=== PATIENT | female | born 1980 | race Hispanic/Latino ===

== ENCOUNTER → 2020-01-08 09:13 | Outpatient (CLI) | payer OTHER, SELFPAY ==
[2020-01-08 10:47] LABS: Add Manual Diff / Slide Review NO; Basophils Absolute Auto 0 /uL (0-100); Basophils Percent Auto 0.4 % (0-2); Eosinophils Absolute Auto 0 /uL (0-450); Eosinophils Percent Auto 0.7 % (2-4); Hematocrit 41.5 % (36-46); Hemoglobin 14.1 g/dL (12.0-16.0); Lymphocytes Absolute Auto 2000 /uL (1100-4500); Mean Corpuscular HGB Conc 34.1 % (30-36); Mean Corpuscular Hemoglobin 30.7 PG (26-34); Mean Corpuscular Volume 90.1 fL (80-100); Monocytes Absolute Auto 400 /uL (0-900); Monocytes Percent Auto 5.4 % (3-14); Neutrophils Absolute Auto 4200 /uL (1500-7000); Neutrophils Percent Auto 63.5 % (50-75); Platelet Count 195 X10^3/uL (150-400); Red Blood Cell Count 4.61 X10^6/uL (4.0-5.2); Red Cell Distribution Width 12.8 % (11.6-14.8); White Blood Cell Count 6.6 X10^3/uL (4.5-11.0)
[2020-01-08 11:23] LABS: Alanine Aminotransferase 12 IU/L (<35); Albumin 4.4 g/dL (3.5-5.0); Albumin Globulin Ratio 1.6 (1.0-2.8); Alkaline Phosphatase 79 U/L (38-126); Aspartate Aminotransferase 18 IU/L (14-36); BUN Creatinine Ratio 15.4 (6-22); Bilirubin Total 0.4 mg/dL (0.2-1.3); Blood Urea Nitrogen 10 mg/dL (7-17); Calcium 9.2 mg/dL (8.4-10.2); Carbon Dioxide 27 mmol/L (22-32); Chloride 105 mmol/L (98-107); Cholesterol 188 mg/dL (140-199); Estimated Glomerular Filt Rate > 60.0 mL/min (>60); Globulin 2.7 g/dL (1.7-4.1); Glucose 92 mg/dL (70-100); HDL Cholesterol 76 mg/dL (40-60); HEMOLYSIS < 15 (0-50); LDL Cholesterol Calculated 83 mg/dL (<100); Potassium 4.2 mmol/L (3.4-5.1); Sodium 139 mmol/L (137-145); Total Protein 7.1 g/dL (6.3-8.2); Triglycerides 147 mg/dL (35-150)
[2020-01-08 11:42] LABS: TSH w/ Reflex to FT4 1.24 uIU/mL (0.47-4.68)
== END ==
PROVIDERS: PCP Family Medicine; Referring Provider Family Medicine; Visit Provider Family Medicine
DX: Z13.220 Encounter for screening for lipoid disorders (principal); Z13.228 Encounter for screening for other metabolic disorders; Z13.29 Encounter for screening for other suspected endocrine disorder; Z76.89 Persons encountering health services in other specified circumstances
CPT/HCPCS: 36415; 80053; 80061; 84443; 85025

== ENCOUNTER → 2020-08-06 07:50 | Outpatient (CLI) | payer OTHER, SELFPAY ==
[2020-08-06] MEDS: COVID-19 VACC #1, MRNA(MOD) 100 MCG/0.5 ML VIAL IM (07:57)
== END ==
PROVIDERS: PCP Family Medicine; Visit Provider Internal Medicine
DX: Z23 Encounter for immunization (principal)
CPT/HCPCS: 0011A; 91301

== ENCOUNTER → 2020-09-03 07:35 | Outpatient (CLI) | payer OTHER, SELFPAY ==
[2020-09-03] MEDS: COVID-19 VACC #2, MRNA(MOD) 100 MCG/0.5 ML VIAL IM (07:50)
== END ==
PROVIDERS: PCP Family Medicine; Visit Provider Internal Medicine
DX: Z23 Encounter for immunization (principal)
CPT/HCPCS: 0012A; 91301

== ENCOUNTER → 2021-06-01 11:59 | Outpatient (CLI) | payer OTHER, SELFPAY ==
--- NOTE | 2021-06-01 12:02 | DI.US.S_ITS ---
PROCEDURE: US OB <= 14 WEEKS FETUS INDICATIONS: INITIAL VIABILITY AND DATING OUTSIDE/PRIOR DATING DATA: Last menstrual period (LMP): 04/02/2021 LMP-based estimated date of delivery (AKUA): 01/07/2022 First dating scan (date and location): 06/01/2021 and [facility] Estimated date of delivery (AKUA) from first dating scan: 01/05/2022 TECHNIQUE: Real-time scanning was performed of the fetus and maternal pelvic organs, with image documentation. Endovaginal scanning was also performed to better visualize the fetus and maternal ovaries. COMPARISON: None. FINDINGS: Embryo: Intrauterine gestational sac is seen with yolk sac and pole. Revloc-rump length is 2.2 cm, compatible with an estimated gestational age of 8 weeks 6 days. Heart rate: 175 beats per minute Maternal organs: A dominant right ovarian follicle is seen measuring up to 2.5 cm, most likely a corpus luteum cyst. IMPRESSION: Single live intrauterine with estimated gestational age of 8 weeks 6 days, giving an ultrasound AKUA of 01/05/2022. We strive to produce accurate, complete, and clear reports of imaging services. To assist us in improving patient care, this report was composed using standard report templates and voice recognition software. Therefore, it may contain abnormal punctuation, insertions and/or omissions. Occasional wrong-word or sound-alike substitutions may occur. Though we review the report and make efforts to correct it, we do recommend that the report be read carefully in proper context to recognize any text inaccuracies. Dictated by: Bebo Dwyer M.D. on 06/01/2021 at 16:25 Approved by: Bebo Dwyer M.D. on 06/01/2021 at 16:27
[2021-06-01 14:16] LABS: Appearance Urine UA CLEAR; Bilirubin Urine UA NEGATIVE (NEGATIVE); Color Urine UA YELLOW; Glucose Urine UA NEGATIVE (Negative); Ketones Urine UA TRACE (NEGATIVE); Leukocyte Esterase Urine UA NEGATIVE (NEGATIVE); Nitrite Urine UA POSITIVE (Negative); Occult Blood Urine UA 1+ (Negative); Protein Urine UA NEGATIVE (Negative); Specific Gravity Urine UA 1.025 (1.000-1.035); Urobilinogen Urine UA 0.2 E.U./dL (0.2)
[2021-06-01 14:19] LABS: pH Urine UA 5.5 (4.5-8.0)
[2021-06-01 14:23] LABS: Add Manual Diff / Slide Review NO; Basophils Absolute Auto 0 /uL (0-100); Basophils Percent Auto 0.4 % (0-2); Eosinophils Absolute Auto 100 /uL (0-450); Eosinophils Percent Auto 1.1 % (2-4); Hematocrit 37.7 % (36-46); Hemoglobin 13.3 g/dL (12.0-16.0); Lymphocytes Absolute Auto 1900 /uL (1100-4500); Lymphocytes Percent Auto 23.4 % (25-40); Mean Corpuscular HGB Conc 35.4 % (30-36); Mean Corpuscular Volume 87.6 fL (80-100); Monocytes Absolute Auto 600 /uL (0-900); Monocytes Percent Auto 7.4 % (3-14); Neutrophils Absolute Auto 5400 /uL (1500-7000); Neutrophils Percent Auto 67.7 % (50-75); Platelet Count 236 X10^3/uL (150-400); Red Cell Distribution Width 12.3 % (11.6-14.8)
[2021-06-01 14:25] LABS: Bacteria Urine Moderate (10-30); Culture Indicated Urine Specimen Cultured; RBC Urine 1-5/HPF (0-5/HPF); Squamous Epithelial Cell Urine 0-1 /HPF (0-5/HPF); WBC Urine None Seen (0-5/HPF)
[2021-06-02 07:10] LABS: RPR Screen Non Reactive (Non Reactive)
[2021-06-02 11:55] LABS: Varicella IgG Antibody 615 index (Immune >165)
[2021-06-03 09:06] LABS: Hepatitis B Surface Antigen NEGATIVE s/c (NEGATIVE)
[2021-06-03 09:27] LABS: HIV 1 & 2 Ab/Ag 4th Gen Combo NEGATIVE (NEGATIVE); Hep C Virus Ab w/Reflex Quant NEGATIVE s/c (NEGATIVE)
== END ==
PROVIDERS: PCP Family Medicine; Referring Provider Obstetrics & Gynecology; Visit Provider Obstetrics & Gynecology
DX: Z36.87 Encounter for antenatal screening for uncertain dates (principal); Z3A.08 8 weeks gestation of pregnancy
CPT/HCPCS: 36415; 76801; 76817; 80055; 81003; 81015; 86787; 86803; 86850; 86900; 86901; 87086; 87389

== ENCOUNTER → 2021-06-09 16:50 | Outpatient (CLI) | payer OTHER, SELFPAY ==
[2021-06-09 20:14] LABS: Urine N gonorrhoeae NOT DETECTED
[2021-06-09 20:16] LABS: Urine Chlamydia NOT DETECTED
== END ==
PROVIDERS: PCP Family Medicine; Visit Provider Obstetrics & Gynecology
DX: Z34.81 Encounter for supervision of other normal pregnancy, first trimester (principal); Z3A.09 9 weeks gestation of pregnancy
CPT/HCPCS: 87491; 87591

== ENCOUNTER → 2021-07-28 11:22 | Outpatient (CLI) | payer OTHER, SELFPAY ==
[2021-07-30 20:16] LABS: AFP Value 36.3 ng/mL (.); Gest Age on Col Date 16.7 weeks (.); Gestational Age Ultrasound (.); Insulin Dep Diabetes No (.); OSBR Risk 1IN 10000 (.); Results Report (.); Test Results *Screen Negative* (.)
== END ==
PROVIDERS: PCP Family Medicine; Referring Provider Obstetrics & Gynecology; Visit Provider Obstetrics & Gynecology
DX: Z34.82 Encounter for supervision of other normal pregnancy, second trimester (principal); Z3A.16 16 weeks gestation of pregnancy
CPT/HCPCS: 36415; 82105

== ENCOUNTER → 2021-08-25 13:03 | Outpatient (CLI) | payer OTHER, SELFPAY ==
--- NOTE | 2021-08-25 13:04 | DI.US.S_ITS ---
PROCEDURE: US OB >= 14 WEEKS FETUS INDICATIONS: 20 WEEK ANATOMY SCAN OUTSIDE/PRIOR DATING DATA: Last menstrual period (LMP): April 02, 2021. LMP-based estimated date of delivery (AKUA): January 07, 2022. First dating scan (date and location): June 01, 2021. Estimated date of delivery (AKUA) from first dating scan: January 05, 2022. TECHNIQUE: Real-time scanning was performed of the fetus, with image documentation and biometric measurements. COMPARISON: [facility], OB <= 14 WEEKS FETUS, 06/01/2021, 12:13. FINDINGS: General: A single living intrauterine gestation is present. Presentation: Vertex. Placenta: Placental position is anterior , without previa. Amniotic fluid index: 12.1 cm, normal range is 5-24 cm. Single deepest vertical pocket is 3.9 cm. heart rate: 160 beats per minute. Maternal cervical canal: 3.9 cm long. Normal lower limit is 2.5 cm. biometrics: Biparietal diameter: 4.9 cm Head circumference: 18.4 cm Abdominal circumference: 16.6 cm Femur length: 3.7 cm Clinically estimated gestational age: 21 weeks Composite gestational age from present scan: 21 weeks, 2 days Estimated weight and percentile: 432 g +/-64 g; 74th percentile Anatomic survey: Neuro: Ventricles are non-dilated at less than 10 mm. Cisterna magna is normal at 3-11 mm. Cerebellum is normal in size and morphology. Nuchal skin fold: Normal at less than 6 mm between 14-21 weeks gestational age. Face: Nose and lips, facial profile are normal. Spine: No evidence for spina bifida. Heart: 4-chambered heart is present, with normal ventricular outflow tracts. Diaphragm: Diaphragm is intact. Stomach: Left-sided stomach is present. Kidneys: No hydronephrosis. Normal is less than 5 mm in 2nd trimester, less than 7 mm in 3rd trimester. Cord: 3-vessel cord has orthotopic insertion. Bladder: Normal in size. Extremities: All 4 extremities identified. IMPRESSION: Single intrauterine gestation as detailed above. We strive to produce accurate, complete, and clear reports of imaging services. To assist us in improving patient care, this report was composed using standard report templates and voice recognition software. Therefore, it may contain abnormal punctuation, insertions and/or omissions. Occasional wrong-word or sound-alike substitutions may occur. Though we review the report and make efforts to correct it, we do recommend that the report be read carefully in proper context to recognize any text inaccuracies. Dictated by: Abner Mckinney M.D. on 08/25/2021 at 14:29 Approved by: Abner Mckinney M.D. on 08/25/2021 at 14:36
== END ==
PROVIDERS: PCP Family Medicine; Referring Provider Obstetrics & Gynecology; Visit Provider Obstetrics & Gynecology
DX: Z34.82 Encounter for supervision of other normal pregnancy, second trimester (principal); Z3A.21 21 weeks gestation of pregnancy
CPT/HCPCS: 76811

== ENCOUNTER → 2021-09-15 12:17 | Outpatient (CLI) | payer OTHER, SELFPAY ==
[2021-09-15 14:47] LABS: Add Manual Diff / Slide Review NO; Basophils Absolute Auto 0 /uL (0-100); Basophils Percent Auto 0.2 % (0-2); Eosinophils Absolute Auto 100 /uL (0-450); Eosinophils Percent Auto 0.7 % (2-4); Hematocrit 33.8 % (36-46); Hemoglobin 11.8 g/dL (12.0-16.0); Lymphocytes Absolute Auto 1300 /uL (1100-4500); Lymphocytes Percent Auto 17.4 % (25-40); Mean Corpuscular HGB Conc 34.8 % (30-36); Mean Corpuscular Hemoglobin 31.2 PG (26-34); Mean Corpuscular Volume 89.5 fL (80-100); Monocytes Absolute Auto 500 /uL (0-900); Monocytes Percent Auto 7.1 % (3-14); Neutrophils Absolute Auto 5400 /uL (1500-7000); Neutrophils Percent Auto 74.6 % (50-75); Platelet Count 224 X10^3/uL (150-400); Red Blood Cell Count 3.78 X10^6/uL (4.0-5.2); Red Cell Distribution Width 13.3 % (11.6-14.8); White Blood Cell Count 7.3 X10^3/uL (4.5-11.0)
[2021-09-15 22:26] LABS: GTT (PREG) 1 Hour PP 50gm Dose 98 mg/dL (76-139)
== END ==
PROVIDERS: PCP Family Medicine; Referring Provider Obstetrics & Gynecology; Visit Provider Obstetrics & Gynecology
DX: Z34.82 Encounter for supervision of other normal pregnancy, second trimester (principal); Z3A.23 23 weeks gestation of pregnancy
CPT/HCPCS: 36415; 82950; 85025

== ENCOUNTER → 2021-12-09 10:29 | Outpatient (CLI) | payer OTHER, SELFPAY ==
[2021-12-10 12:18] LABS: Strep Grp B PCR NEG for Grp B Strep
== END ==
PROVIDERS: PCP Family Medicine; Visit Provider Obstetrics & Gynecology
DX: Z34.83 Encounter for supervision of other normal pregnancy, third trimester (principal); Z3A.35 35 weeks gestation of pregnancy
CPT/HCPCS: 87653

== ENCOUNTER 2021-12-17 05:46 | Inpatient (IN) | payer OTHER, SELFPAY ==
--- NOTE | 2021-12-16 15:29 | PM.OBHP.1 ---
OB HPI Date/Time Date of admission: 12/17/21 Date Patient Seen: 12/17/21 Time Patient Seen: 07:15 History of Present Condition Chief complaint: Repeat C Section : 5 Para: 3 Estimated Date of Delivery: 01/07/22 Estimated Gestational Age (weeks): 37+0 Narrative: Maritza Ferrari is a 41 year old admitted now at 37+0 weeks EGA by solid dating for repeat now at 37+0 weeks EGA, due to the presence of a myometrial window noted at the time of her most recent section. Patient also requests permanent sterilization at the time of her and a bilateral salpingectomy is planned. course has been essentially uneventful and her GBS is negative. Indications Operative indications ( section): previous uterine surgery History of Present care: good care Dating criteria: LMP confirmed by 1st trimester US Ultrasounds: normal 1st trimester US and normal mid trimester US Obstetrical complications: none Medical complications: none Preadmission Labs Blood type: B (+) positive -: Antibody screen: negative, Cystic fibrosis screen: negative, GBS status: negative, HIV: negative, HSV 1: negative, HSV 2: negative and RPR/VDLR: negative -: Chlamydia screen: not detected and Gonorrhea screen: not detected -: Rubella: not immune and Varicella: immune HCT: 33.8 HCAB: negative PAP: Normal Quad screen: Normal Cell-free DNA: Negative 1 hr GTT: 98 Prior (ies) History: Prior x3 with myometrial window noted at the time of her most recent . Evaluation Evaluation Baseline heart rate: 145 Variability: Moderate (11-25) monitor accelerations: Present Monitor Decelerations: Absent Category of Tracing: Reactive Status: Category l PFSH Medical History Frequent headaches Hepatitis A infection Menstrual headache delivery labor Seasonal allergic rhinitis URI (upper respiratory infection) Surgical History History of repair of ACL History of wisdom tooth extraction Status post delivery (10/26/15) Status post delivery (07/30/08) Status post delivery (02/28/05) Family History Mother Diabetes mellitus Hypertension Gestational diabetes Grandmother Diabetes mellitus Social History marital status: number of children: 3 (2 step children) household members: spouse and children lives independently: Yes housing: house pets and animals: Yes (Dogs) education level: vocational occupational status: unemployed current occupational exposures/hazards: No seatbelt use: always water heater temp set < 120 deg: Yes working smoke detector in home: Yes fire extinguisher in home: Yes carbon monox detector in home: Yes firearms in home: Yes firearms unloaded and locked: Yes do you feel safe at home: Yes Smoking Status: Never smoker second hand exposure: No alcohol intake: former (socially on weekends prior to ) substance use type: does not use and marijuana (non ) during the past year weight has: remained stable well-balanced diet: daily or most days daily servings fruits/ve-4 caffeine: No Type(s) of exercise: walking (will start) Meds Home Medications and Allergies Home Medications Medication Instructions Recorded Confirmed Type [id number] acid 1 tab PO DAILY 01/08/20 12/17/21 History [ Multi] cetirizine 10 mg capsule (Zyrtec) 10 mg PO DAILY PRN allergies 06/07/21 12/17/21 History pyridoxine (vitamin B6) 100 mg 50 mg PO DAILY 06/07/21 12/17/21 History tablet Allergies Allergy/AdvReac Type Severity Reaction Status Date / Time kiwi [KIWI] Allergy Severe NUMBESS OF Verified 12/16/21 10:08 MOUTH & ITCHING penicillin G [PENICILLIN G] Allergy Intermediate HIVES Verified 12/16/21 10:08 OB Exam [facility] Head: normal to inspection, normocephalic and atraumatic Eyes General: appearance normal, both eyes and all related structures Resp Effort & Inspection: normal respiratory effort and able to speak in complete sentences Auscultation: clear to auscultation bilaterally Cardio Rate: regular rate Rhythm: regular rhythm Heart Sounds: S1 normal, S2 normal and no murmurs Extremities Lower extremity: Yes normal to inspection GI Inspection: normal to inspection Palpation: Yes soft and Yes no hepatosplenomegaly Uterus Location (Fundal Height): 37 Estimated Weight (lbs): 7 Objective Labs Result Diagrams: 12/17/21 06:20 Assessment and Plan Assessment and Plan Assessment and Plan narrative: ASSESSMENT 1. Intrauterine gestation, Gonzalez, 37+ 0 weeks gestational age 2. Request for sterilization 3. Myometrial window noted at the time of her most recent section necessitating delivery at 37+ 0 weeks per recommendation of [facility] 4. GBS negative status PLAN 1. Admit for repeat section and bilateral salpingectomy for sterilization 2. See admission orders
--- NOTE | 2021-12-17 | PATH_ITS ---
[facility] Accession Number: [id number] No. of containers..01 Tissue . 01 Material submitted: . fallopian tube - BILATERAL FALLOPIAN TUBE . 01 Clinical history: . REPEAT C SECTION . 01 Diagnosis: Bilateral Fallopian Tubes, Bilateral Salpingectomy: Longer fallopian tube with a benign paratubal cyst (12 mm), complete cross-section; negative for atypia or malignancy. [place] fallopian tube, complete cross-sections; negative for atypia or malignancy. [facility] 12/21/2021 1116 Local . 01 Electronically signed: . Hanna Mueller MD, Pathologist NPI- [id number] . 01 Gross description: . Received in formalin, labeled with the patient's name and bilateral fallopian tubes, and consists of two unoriented, fimbriated fallopian tubes measuring 7.5 x 0.7 cm and 6.7 x 0.7 cm, respectively. The longer fallopian tube has smooth, violaceous serosa with a large cystic structure located near the fimbriated end measuring 1.2 cm in greatest dimension and filled with clear, serous fluid. Sectioning reveals an unremarkable stellate lumen. The shorter fallopian tube has smooth, violaceous serosa with no cystic structures identified. Sectioning reveals a congested stellate lumen. Radiotelegraph Operator sections to include one-half of the bisected fimbriae and cross sections are submitted as follows: A1: Longer fallopian tube. A2: [place] fallopian tube. ([id number]) /[facility] 12/18/2021 1244 Local . 01 Pathologist provided ICD-10: Z3A.37 . 01 CPT . 966386, 445671 Specimen Comment: A courtesy copy of this report has been sent to [phone] Performed at: 01 [facility] [address], [place], [place] [id number] MD Kristofer Hancock MD Phone: [phone]
[2021-12-17 06:37] VITALS: BP 140/85
[2021-12-17 06:42] LABS: Add Manual Diff / Slide Review NO; Basophils Absolute Auto 0 /uL (0-100); Basophils Percent Auto 0.4 % (0-2); Eosinophils Absolute Auto 0 /uL (0-450); Eosinophils Percent Auto 0.6 % (2-4); Hematocrit 35.1 % (36-46); Hemoglobin 12.2 g/dL (12.0-16.0); Lymphocytes Absolute Auto 1300 /uL (1100-4500); Mean Corpuscular HGB Conc 34.8 % (30-36); Mean Corpuscular Hemoglobin 30.1 PG (26-34); Mean Corpuscular Volume 86.7 fL (80-100); Monocytes Absolute Auto 600 /uL (0-900); Neutrophils Absolute Auto 4400 /uL (1500-7000); Platelet Count 164 X10^3/uL (150-400); Red Blood Cell Count 4.05 X10^6/uL (4.0-5.2); Red Cell Distribution Width 13.2 % (11.6-14.8); White Blood Cell Count 6.3 X10^3/uL (4.5-11.0)
[2021-12-17 06:53] LABS: COVID19 -Nasal RAPID Negative (Negative)
[2021-12-17] MEDS: LACTATED RINGERS 1,000 ML 1000 ML IV (06:54)
[2021-12-17] MEDS: CITRIC ACID/SODIUM CITRATE 15 ML SOLUTION 30 ML PO (07:39)
[2021-12-17] MEDS: ACETAMINOPHEN 325 MG TABLET 975 MG PO (07:40)
--- NOTE | 2021-12-17 08:01 | PM.PREOP ---
Pre-operative Note COVID-19 COVID-19 status: Negative Result date/Date tested (Pos, Neg/Pending): 12/17/21 Criteria for continued procedure: Non-surgical alternatives not available or appropriate per current SOC Interval Note History & Physical reviewed/Exam performed by Physician: Yes Changes to H&P: No
[2021-12-17] MEDS: CEFAZOLIN 2 GM/100 ML PREMIX 100 ML IV (08:15)
--- NOTE | 2021-12-17 08:32 | SUR.OPER ---
Supine on Padded OR bed, head on pillow, safety belt at thigh, arms secured on padded arm boards at <90 degrees abduction. Bump under right buttock. Legs uncrossed with pillow under knees, gel pad to heels, tape over blanket to lower legs. Gel pad placed between patient posterior upper leg and urinary catheter tubing.
--- NOTE | 2021-12-17 09:08 | SUR.OPER ---
Viable baby girl delivered at 0834. placenta and cord blood tubes X2 given to L&D RN.
--- NOTE | 2021-12-17 09:39 | P.OP_ITS ---
Operative Date/Time/Diagnoses Date of procedure: 12/17/21 Time of procedure: 08:15 Pre-op diagnosis: Intrauterine gestation, 37+0 weeks EGA Prior sections Myometrial window noted at prior section Request for sterilization Post-op diagnosis: same Procedure & Clinicians Procedure: Repeat section, low transverse cervical Bilateral salpingectomy Same procedure as scheduled: Yes Indications: Maritza Ferrari is a 41 year old admitted now at 37+0 weeks EGA by solid dating for repeat now at 37+0 weeks EGA, due to the presence of a myometrial window noted at the time of her most recent section.? Patient also requests permanent sterilization at the time of her and a bilateral salpingectomy is planned.? course has been essentially uneventful and her GBS is negative. Surgeon: Tyrone Billings Kiln Stacker: Nicolasa Amado Reason for Kiln Stacker: Kiln Stacker required for the safe, effective, and timely completion of this surgery. Anesthesia Type: Spinal Operative Notes Findings: Viable female infant BW 3520 gms. (7 lbs. 12.2 oz.), Apgars 9/9, delivered from the vertex presentation. Normal gravid anatomy. Closure Type: primary Specimen(s): cord blood Intraoperative meds administered: Acetaminophen, Ketorolac and Pitocin Applied: Catheter Estimated Blood Loss (mL): 600 Blood products transfused: none Procedure in detail: With her informed written consent, the patient was taken to the operating room and placed in the supine position for a repeat section procedure, for t he indication(s) above. The abdomen was prepped and draped in the usual manner for section and a pre-surgical timeout was taken per [facility] OR protocol. Once effective anesthesia was confirmed, a 15 cm transverse Pfannenstiel incision was made in the skin and taken down through the subcutaneous tissues to the deep fascia. The deep fascia was incised transversely, the rectus abdominal eyes bluntly and sharply, and the peritoneal cavity entered without difficulty. The lower uterine segment was visualized and the position/presentation palpated. A transverse incision at or above the vesicouterine reflection was made with Metzenbaum scissors and transverse hysterotomy performed near the midline. Amniotomy revealed clear fluid. The incision was extended bilaterally with digital traction and the infant was delivered without difficulty from the vertex presentation. A loose nuchal cord was noted at delivery of the vertex and easily reduced. The infant was vigorous and cord clamping delayed for 60 seconds. The placenta was delivered intact using gentle cord traction and fundal massage.The uterine cavity was then cleared of any clot/debris first with a sloppy wet lap tape followed by a dry lap tape. Ring forceps were then applied to the angles and the midline of the incised JAMES. A primary closure of the uterus was then accomplished with #1 CCGS in a running interlocking stitch followed by a 2nd layer of #1 CCGS in a running interlocking imbricating stitch. One additional [id number] suture was required to achieve complete hemostasis of the h ysterotomy. Attention was then turned to performance of the bilateral salpingectomy and the distal left fallopian tube was grasped at the fimbria with a Vandana clamp. Using a LigaSure device, the fimbria ovarica was coagulated and divided followed by coagulation and division of the mesosalpinx to the level of the cornua where the proximal tube was coagulated and divided. Attention was then turned to the right side where the fimbria was grasped with Dixon clamp and the fimbria ovarica was coagulated and divided with that dissection carried across the mesosalpinx to the cornua where the proximal tube was coagulated and divided with the LigaSure device. Once pelvic hemostasis was assured, the anterior peritoneum was closed with a running 2-0 Vicryl suture and the fascia closed with #1 Vicryl in a running stitch initiated at both angles and tying separately near the midline. The subcutaneous tissues were reapproximated with 2-0 plain catgut suture using inverted interrupted stitches. The skin edges were then brought together with 4-0 Monocryl in a subcuticular closure and the incision was reinforced with half-inch Steri-Strips. An appropriate compression dressing was applied and the patient transferred to PACU for recovery and subsequent transfer to the Center for recuperation. Complications: none Baby 1: Infant Gender: Female Presentation: vertex Position: Left Occiput Anterior Placental Delivery Description: Spontaneous and Expressed Cord Vessel Description: 3 Vessels and Nuchal Cord (Loose, x 1) score (1 min): 9 score (5 min): 9 weight: 7 lb 12.164 oz Post-operative Condition: stable Disposition: PACU Aftercare: routine postop
[2021-12-17 09:45] VITALS: BP 112/74; PULSE 69; RESP 16; TEMP 36; O2SAT 100
[2021-12-17 09:50] VITALS: BP 115/75; PULSE 65; RESP 16; O2SAT 100
[2021-12-17 09:59] VITALS: BP 114/66; PULSE 77; RESP 16; TEMP 36.2; O2SAT 100
[2021-12-17] MEDS: KETOROLAC 30 MG/ML VIAL IV ×2 (14:30→20:29)
[2021-12-17] MEDS: ACETAMINOPHEN 325 MG TABLET 650 MG PO ×2 (14:31→20:29)
[2021-12-17] MEDS: OXYCODONE IR 5 MG TABLET PO ×2 (16:25→20:30)
[2021-12-17] MEDS: DOCUSATE 100 MG CAPSULE 200 MG PO (20:30)
[2021-12-18] MEDS: OXYCODONE IR 5 MG TABLET PO ×4 (00:28→22:14)
[2021-12-18] MEDS: ACETAMINOPHEN 325 MG TABLET 650 MG PO ×4 (04:30→23:42)
[2021-12-18] MEDS: KETOROLAC 30 MG/ML VIAL IV ×2 (04:30→11:22)
[2021-12-18 06:44] LABS: Hematocrit 33.4 % (36-46); Hemoglobin 11.6 g/dL (12.0-16.0)
[2021-12-18] MEDS: DOCUSATE 100 MG CAPSULE 200 MG PO ×2 (08:00→22:10)
--- NOTE | 2021-12-18 08:07 | P.PNOB_ITS ---
Subjective - OB Subjective Patient comments: no complaints, pain well controlled, incisional pain and tolerating diet; no flatus present [place] baby status: doing well [place] feeding status: exclusively breast feeding Narrative: No issues overnight. Ambulating independently. Minimal lochia. Date Patient Seen: 12/18/21 Time Patient Seen: 08:08 Exam Vital Signs (past 8 hours): Oxygen Delivery Method Room Air Const General: cooperative and comfortable Nutritional Appearance: average body habitus Orientation: alert and oriented x3 HENMT Head: normal to inspection, atraumatic and abrasion Ears: hearing grossly normal bilaterally Face and sinus: face symmetric Eyes General: appearance normal, both eyes and all related structures Conjunctivae: conjunctivae normal Sclera: sclerae normal EOM: EOM intact bilaterally Neck Neck: normal visual inspection Resp Effort & Inspection: normal respiratory effort and able to speak in complete sentences Auscultation: clear to auscultation bilaterally Cardio Rate: regular rate Rhythm: regular rhythm Heart Sounds: S1 normal, S2 normal and no murmurs GI Inspection: normal to inspection and incision (Surgical dressing clean and dry) Palpation: soft, no hepatosplenomegaly and tender (Mild, diffuse postsurgical tenderness) External Female Exam: other (Minimal lochia) Extrem General: no calf tenderness Psych Appearance: grossly normal Mental Status: mental status grossly normal Speech and Movement: speech and movement normal Mood: congruent mood Affect: normal affect Attitude: cooperative Thought Process: normal Thought Content: normal Judgment: judgment good Objective Labs Result Diagrams: 12/18/21 06:35 Labs: Laboratory Results - last 24 hr 12/18/21 06:35 Hgb 11.6 L Hct 33.4 L Assessment & Plan Plan day: 1 plan OB: routine postop care Comments: Anticipate discharge AM 12/19/2021 Time Spent With Patient Time: Total time spent is greater than 50% in coordination of care (as documented) at patient's floor/unit and/or counseling patient: Time with patient: 15-24 minutes
[2021-12-18] MEDS: IBUPROFEN 600 MG TABLET PO ×2 (16:57→23:41)
[2021-12-18] MEDS: OXYCODONE IR 5 MG TABLET 10 MG PO ×2 (17:53→22:21)
[2021-12-19] MEDS: OXYCODONE IR 5 MG TABLET PO (02:01)
[2021-12-19] MEDS: OXYCODONE IR 10 MG TABLET PO ×2 (06:02→09:59)
[2021-12-19] MEDS: IBUPROFEN 600 MG TABLET PO ×2 (06:03→12:17)
[2021-12-19] MEDS: ACETAMINOPHEN 325 MG TABLET 650 MG PO ×2 (06:03→12:16)
[2021-12-19] MEDS: DOCUSATE 100 MG CAPSULE 200 MG PO (09:59)
--- NOTE | 2021-12-19 10:55 | P.DS_ITS ---
Discharge Providers Provider Date of admission: 12/17/21 05:46 Discharge Date: 12/19/21 Primary care physician: Bj Watson DO Consults: 12/17/21 09:42 Consult to Card Game Operator Routine Comment: Discharge provider: Tyrone Billings MD Summary Hospital Course Date Patient Seen: 12/19/21 Time Patient Seen: 10:55 Diagnoses: Intrauterine gestation, Gonzalez, 37+ 0 weeks gestational age, delivered by repeat section History of myometrial window with prior Request for sterilization Hospital Course: Maritza was admitted for repeat section and bilateral salpingectomy for sterilization on the morning of 12/17/2021. She underwent an uneventful repeat section with bilateral salpingectomy and the details of the procedure are well summarized on my dictated operative note of that date. Following her delivery, the patient has done extremely well with prompt return of bowel and bladder function, she is ambulating independently, tolerating regular diet, and her pain is well controlled with oral pain medications. She will be discharged at this time in an afebrile normotensive condition to home af ter counseling regarding precautionary symptoms, limitations activity, medications, and plans for follow-up. Medications at the time of discharge will include vitamins, iron, and Zyrtec OTC which she was taking prior to delivery as well as oxycodone 10 mg tabs 1 p.o. q.6 hours as needed pain #20, Colace 200 mg p.o. b.i.d. times 15 days, and ibuprofen 600 mg p.o. q.6 hours as needed pain. Follow-up will be in 1 week for incision check and dressing removal. Peripartum Data Infant Delivery Method: Section Laceration Description: None complications: none [place] 1: Gender: Female Disposition of : home Discharge Diagnosis (1) delivery, delivered, current hospitalization: Status: Acute (2) Request for sterilization: Status: Acute Time Spent with Patient Time attestation: Total time spent providing and/or coordinating discharge services: Time spent: Less than 30 minutes Objective Labs Result Diagrams: 12/18/21 06:35 Exam Vital Signs (past 8 hours): Oxygen Delivery Method Room Air Const General: cooperative and comfortable Nutritional Appearance: average body habitus Orientation: alert and oriented x3 HENMT Head: normal to inspection, atraumatic and abrasion Ears: hearing grossly normal bilaterally Face and sinus: face symmetric Eyes General: appearance normal, both eyes and all related structures Conjunctivae: conjunctivae normal Sclera: sclerae normal EOM: EOM intact bilaterally Neck Neck: normal visual inspection Resp Effort & Inspection: normal respiratory effort and able to speak in complete sentences Auscultation: clear to auscultation bilaterally Cardio Rate: regular rate Rhythm: regular rhythm Heart Sounds: S1 normal, S2 normal and no murmurs GI Inspection: normal to inspection and incision (Incision clean and dry; compression dressing removed, AquaCell applied) Palpation: soft, no hepatosplenomegaly and tender (Mild, diffuse postsurgical tenderness) External Female Exam: other (No significant bleeding noted) Extrem General: no calf tenderness Psych Appearance: grossly normal Mental Status: mental status grossly normal Speech and Movement: speech and movement normal Mood: congruent mood Affect: normal affect Attitude: cooperative Thought Process: normal Thought Content: normal Judgment: judgment good Discharge Plan Discharge Plan Patient Disposition: Home Provider Discharge Comment: Please review the written instructions you received when you were discharged from the hospital. Your follow-up appointment will be scheduled for 1 week after your surgery and I look forward to seeing you then. If in the meanwhile however you have any issues, concerns, or problems, please contact me either through the office phone at [phone] or via the patient portal, Discharge orders & Medications Prescriptions: New docusate sodium 100 mg Capsule 200 mg PO BID 15 Days Qty: 30 2RF ibuprofen 600 mg Tablet 600 mg PO Q6H PRN (Reason: Fever/Mild Pain (1-3)) Qty: 60 2RF oxycodone 10 mg Tablet 10 mg PO Q6H PRN (Reason: Pain, Severe (7-10)) Qty: 20 2RF Continued [id number] acid 1 tab PO DAILY Zyrtec 10 mg capsule 10 mg PO DAILY PRN (Reason: allergies) pyridoxine (vitamin B6) 100 mg tablet 50 mg PO DAILY Follow up/Referrals: Bj Watson DO [Primary Care Provider] - Discharge Health Status Multidrug resistant organism: No MDRO Diet/Activity/Treatments Diet: Diet as Tolerated Activity: As tolerated Other treatments: Tylenol may be used for additional pain relief. Skin/Wound/Dressing Care Report to your healthcare provider any signs of infection, such as:: chills, fever, increased pain, unusual drainage and unusual redness Visit Report/Discharge Packet Instructions: DI for , DI for and Nipple Soreness, DI for Prescription Opioid Use Stand Alone Forms: Discharge: Care Discharge Data Primary Care Provider: Bj Watson
[2021-12-19 11:44] VITALS: BP 115/51; PULSE 86; RESP 16; TEMP 36.6
== END 2021-12-19 12:30 | disposition home or self-care (01) | DRG 785 ==
PROVIDERS: Admitting Provider Obstetrics & Gynecology; PCP Family Medicine; Referring Provider Obstetrics & Gynecology; Visit Provider Obstetrics & Gynecology
PROC: 10D00Z1 Extraction of Products of Conception, Low, Open Approach (ICD-10-PCS; CPT 59514; principal; 2021-12-17 07:45)
DX: O34.211 Maternal care for low transverse scar from previous cesarean delivery (principal); O99.892 Other specified diseases and conditions complicating childbirth; Z3A.37 37 weeks gestation of pregnancy; Z37.0 Single live birth; Z30.2 Encounter for sterilization; Z20.822 Contact with and (suspected) exposure to COVID-19; N83.8 Other noninflammatory disorders of ovary, fallopian tube and broad ligament
CPT/HCPCS: 36415; 58611; 59050; 59510; 59514; 85014; 85018; 85025; 86850; 86900; 86901; 87635; C9803; J0690; J1885; J2274; J2590